=== PATIENT | female | born 1995 ===

== ENCOUNTER 2021-10-17 04:33 | Inpatient (IN) ==
[2021-10-17] MEDS ORDERED: MEPERIDINE 50 MG/1 ML VIAL IV PRN (05:12)
[2021-10-17] MEDS: LACTATED RINGERS 1,000 ML IV SCH ×2 (05:12→14:14)
[2021-10-17] MEDS ORDERED: ONDANSETRON 4 MG/2 ML VIAL IV PRN ×2 (05:12→19:16)
[2021-10-17] MEDS ORDERED: BUTORPHANOL 2 MG/ML VIAL IV PRN (05:12)
[2021-10-17 05:42] LABS: Basophils % 0.2 % (0.0-0.8); Eosinophils # 0.2 10*3/uL (0.0-0.87); Eosinophils % 2.2 % (0.00-10.9); Hematocrit 31.7 VOL% (35.7-47.0); Hemoglobin 10.2 GM/DL (12.0-16.0); Immature Granulocytes % 0.4 %; Immature Granulocytes Absolute 0.04 #; Lymphocytes # 2.2 10*3/uL (1.4-4.0); Lymphocytes % 21.3 % (21.3-54.2); Mean Corpuscular HGB Conc 32.2 GM/DL (32-36); Mean Corpuscular Volume 83.6 FL (87-102); Mean Platelet Volume 8.9 FL (9.6-12.0); Monocytes % 8.9 % (1.7-12.7); Platelet Count 475 T/CUMM (130-400); Red Blood Count 3.79 MC/CUMM (3.8-5.5); Red Cell Distribution Width 14.1 % (9.3-17.3); White Blood Count 10.1 T/CUMM (4-12)
[2021-10-17 05:48] LABS: Bilirubin,Urine Negative (Negative); Blood, Urine Negative (Negative); Glucose,Urine (UA) Negative (Negative); Ketones,Urine Negative (Negative); Mucus,Urine Occasional /LPF (Occasional); Nitrite,Urine Negative (Negative); Protein,Urine Negative; RBC,Urine 1 /HPF (0-4); Squamous Epithelial Cell,Urine Occasional /HPF (0-10); Urine Appearance CLEAR (Clear); Urine Color Yellow (Yellow); Urine Specific Gravity 1.016 (1.001-1.035); Urine Urobilinogen < 2.0 EU/DL (<2.0)
[2021-10-17] MEDS ORDERED: OXYTOCIN/LR 20 UNIT/1,000 ML BAG IV SCH (06:00)
[2021-10-17 06:29] LABS: Alanine Aminotransferase 19 U/L (13-56); Albumin 2.4 G/DL (3.4-5.0); Alkaline Phosphatase 159 U/L (45-117); Aspartate Amino Transferase 15 U/L (0-37); Bilirubin,Total < 0.39 MG/DL (0.20-1.00); Blood Urea Nitrogen 11 MG/DL (7-18); Calcium 8.2 MG/DL (8.5-10.1); Carbon Dioxide 20 MMOL/L (21-32); Estimated Glom Filtration Rate 151 ML/MIN; Glucose 93 MG/DL (74-106); Osmolality,Calculated 271.8 MOS/KG (273-304); Potassium 3.8 MMOL/L (3.5-5.1); Sodium 137 MMOL/L (136-145); Total Protein 7.6 G/DL (6.4-8.2)
[2021-10-17] MEDS ORDERED: CARBOPROST TROMETHAMINE 250 MCG/ML AMP IM ONE (15:17)
[2021-10-17] MEDS ORDERED: METHYLERGONOVINE 0.2 MG/1 ML AMP ONE (15:17)
[2021-10-17] MEDS ORDERED: miSOPROStoL 200 MCG TABLET ONE (15:17)
[2021-10-17] MEDS ORDERED: LIDOCAINE 1% 50 ML VIAL ONE (15:40)
[2021-10-17] MEDS ORDERED: ePHEDrine 50 MG/ML VIAL IV PRN (15:53)
[2021-10-17] MEDS ORDERED: diphenhydrAMINE 50 MG/1 ML VIAL IV PRN (15:53)
[2021-10-17] MEDS ORDERED: FAMOTIDINE 20 MG/2 ML VIAL IV ONE ×2 (15:53→15:59)
[2021-10-17] MEDS ORDERED: CITRIC ACID/SODIUM CITRATE 30 ML UDCUP PO ONE (15:53)
[2021-10-17] MEDS ORDERED: PROMETHAZINE 25 MG/1 ML VIAL IM PRN (15:53)
[2021-10-17] MEDS ORDERED: NALOXONE 0.4 MG/ML VIAL IV PRN (15:53)
[2021-10-17] MEDS ORDERED: CITRIC ACID/SODIUM CITRATE 30 ML UDCUP ONE (15:58)
[2021-10-17] MEDS ORDERED: fentaNYL 2 MCG/ROPIV 0.2% EPID 100 ML EPIDURAL ONE (15:59)
[2021-10-17] MEDS ORDERED: fentaNYL 2 MCG/ROPIV 0.2% EPID 100 ML EPIDURAL SCH (16:00)
[2021-10-17] MEDS ORDERED: ceFAZolin 2,000 MG/50 ML DUPLEX IV ONE (18:03)
[2021-10-17] MEDS ORDERED: LIDOCAINE MPF 2% /EPI 20 ML VIAL ONE (18:13)
[2021-10-17] MEDS ORDERED: KETOROLAC 30 MG/1 ML VIAL ONE (18:28)
[2021-10-17] MEDS ORDERED: ACETAMINOPHEN INJ 1,000 MG/100 ML VIAL IV ONE (18:28)
[2021-10-17] MEDS ORDERED: OXYTOCIN 10 UNIT/ML VIAL ONE (18:31)
[2021-10-17] MEDS ORDERED: OXYTOCIN 10 UNIT/ML VIAL IM ONE (18:45)
[2021-10-17] MEDS ORDERED: MIDAZOLAM 2 MG/2 ML VIAL ONE (18:55)
[2021-10-17 19:00] LABS: Cord Venous Blood HCO3 22.8 MMOL/L; Cord Venous Blood PCO2 42.7 MMHG; Cord Venous Blood PO2 28.8
[2021-10-17] MEDS ORDERED: PHENYLEPHRINE 1 MG/10 ML SYRINGE IV ONE (19:01)
[2021-10-17 19:05] LABS: Bilirubin,Urine Negative (Negative); Blood, Urine Negative (Negative); Glucose,Urine (UA) Negative (Negative); Ketones,Urine 20 mg/dL (Negative); Mucus,Urine Occasional /LPF (Occasional); Nitrite,Urine Negative (Negative); Protein,Urine Negative; RBC,Urine <1 /HPF (0-4); Squamous Epithelial Cell,Urine Occasional /HPF (0-10); Urine Appearance CLEAR (Clear); Urine Color Yellow (Yellow); Urine Specific Gravity 1.016 (1.001-1.035); Urine Urobilinogen < 2.0 EU/DL (<2.0)
[2021-10-17] MEDS ORDERED: RHO(D) IMMUNE GLOBULIN 300 MCG SYRINGE IM ONE (19:16)
[2021-10-17] MEDS ORDERED: MAGNESIUM HYDROXIDE SUSP 30 ML UDCUP PO PRN (19:16)
[2021-10-17] MEDS ORDERED: OXYTOCIN/LR 20 UNIT/1,000 ML BAG IV ONE (19:16)
[2021-10-17] MEDS ORDERED: ACETAMINOPHEN 325 MG TABLET PO PRN (19:16)
[2021-10-17] MEDS ORDERED: SIMETHICONE CHEW 80 MG TABLET PO PRN (19:16)
[2021-10-17] MEDS ORDERED: LACTATED RINGERS 1,000 ML IV SCH (19:30)
[2021-10-17] MEDS: OXYTOCIN/LR 30 UNIT/1,000 ML BAG IV PRN ×2 (19:52→22:17)
[2021-10-17] MEDS: DOCUSATE SODIUM 100 MG CAPSULE PO SCH (22:17)
[2021-10-18] MEDS: KETOROLAC 30 MG/1 ML VIAL IV SCH ×3 (02:51→18:41)
[2021-10-18] MEDS ORDERED: HYDROmorphone 2 MG/1 ML VIAL IV ONE (03:43)
[2021-10-18] MEDS ORDERED: BENZOCAINE/MENTHOL LOZENGE 18/BOX PO PRN (06:51)
[2021-10-18 07:44] LABS: Basophils % 0.4 % (0.0-0.8); Eosinophils % 0.3 % (0.00-10.9); Hematocrit 25.5 VOL% (35.7-47.0); Immature Granulocytes % 0.4 %; Immature Granulocytes Absolute 0.04 #; Lymphocytes # 1.6 10*3/uL (1.4-4.0); Lymphocytes % 15.6 % (21.3-54.2); Mean Corpuscular HGB Conc 31.4 GM/DL (32-36); Mean Platelet Volume 9.2 FL (9.6-12.0); Neutrophils % 73.3 % (38.7-73.9); Platelet Count 396 T/CUMM (130-400); Red Cell Distribution Width 14.3 % (9.3-17.3); White Blood Count 10.1 T/CUMM (4-12)
[2021-10-18] MEDS ORDERED: INFLUENZA VIRUS VACCINE 0.5 ML SYRINGE IM ONE (09:00)
[2021-10-18] MEDS: METOCLOPRAMIDE 10 MG TABLET PO SCH ×2 (09:00→16:00)
[2021-10-18] MEDS: DOCUSATE SODIUM 100 MG CAPSULE PO SCH (09:15)
[2021-10-18] MEDS: MULTIVITAMIN (PRENATAL) TABLET PO SCH (09:16)
[2021-10-18] MEDS: IBUPROFEN 800 MG TABLET PO PRN ×2 (13:00→16:40)
[2021-10-18] MEDS: ACETAMINOPHEN 500 MG TABLET PO SCH ×2 (16:38→18:25)
[2021-10-18] MEDS ORDERED: POLYETHYLENE GLYCOL POWDER 17 GM PACK PO SCH (21:00)
[2021-10-19] MEDS: DOCUSATE SODIUM 100 MG CAPSULE PO SCH ×2 (01:44→09:11)
[2021-10-19] MEDS: MULTIVITAMIN (PRENATAL) TABLET PO SCH (09:11)
[2021-10-19] MEDS ORDERED: DIPH/TET/ACEL PERT BOOSTER VACCINE 0.5 ML VIAL IM ONE (12:37)
[2021-10-19 19:05] VITALS: BP 105/61
== END 2021-10-19 12:50 | disposition home or self-care (01) | DRG 540 ==
LOC: N.LD 04:33 → N.OB 23:50
PROVIDERS: ADMIT Obstetrics & Gynecology; ATTEND Obstetrics & Gynecology
PROC: LDCSECT (ICD-10-PCS; 2021-10-17 18:00)

== ENCOUNTER 2022-11-29 22:45 | Inpatient (IN) ==
[2022-11-29] MEDS ORDERED: METHYLERGONOVINE 0.2 MG/1 ML AMP IM PRN (23:00)
[2022-11-29] MEDS ORDERED: miSOPROStoL 200 MCG TABLET RECTAL PRN (23:00)
[2022-11-29] MEDS ORDERED: ONDANSETRON 4 MG/2 ML VIAL IV PRN (23:00)
[2022-11-29] MEDS ORDERED: LACTATED RINGERS 1,000 ML IV SCH (23:00)
[2022-11-29] MEDS ORDERED: CARBOPROST TROMETHAMINE 250 MCG/ML AMP IM PRN (23:00)
[2022-11-29] MEDS ORDERED: TRANEXAMIC ACID 1,000 MG in SODIUM CHLORIDE 0.9% 100 ML IV PRN (23:00)
[2022-11-29] MEDS ORDERED: OXYTOCIN/LR 20 UNIT/1,000 ML BAG IV ONE (23:00)
[2022-11-29] MEDS ORDERED: ePHEDrine 50 MG/ML VIAL IV PRN (23:02)
[2022-11-29] MEDS ORDERED: NALOXONE 0.4 MG/ML VIAL IV PRN (23:02)
[2022-11-29] MEDS ORDERED: CITRIC ACID/SODIUM CITRATE 30 ML UDCUP PO ONE (23:02)
[2022-11-29] MEDS ORDERED: FAMOTIDINE 20 MG/2 ML VIAL IV ONE (23:02)
[2022-11-29] MEDS ORDERED: LACTATED RINGERS 1,000 ML IV PRN (23:02)
[2022-11-29] MEDS ORDERED: OXYTOCIN 10 UNIT/ML VIAL IM ONE (23:16)
[2022-11-29] MEDS ORDERED: OXYTOCIN/LR 30 UNIT/1,000 ML BAG IV ONE (23:17)
[2022-11-29] MEDS ORDERED: miSOPROStoL 200 MCG TABLET ONE (23:18)
[2022-11-29] MEDS ORDERED: TRANEXAMIC ACID 1,000 MG/10 ML VIAL ONE (23:18)
[2022-11-29] MEDS ORDERED: SODIUM CHLORIDE 0.9% 0 ML IV ONE (23:19)
[2022-11-29] MEDS ORDERED: OXYTOCIN/LR 0 UNIT/0 ML BAG IV ONE (23:19)
[2022-11-29] MEDS ORDERED: CARBOPROST TROMETHAMINE 250 MCG/ML AMP IM ONE (23:19)
[2022-11-29] MEDS ORDERED: METHYLERGONOVINE 0.2 MG/1 ML AMP ONE (23:19)
[2022-11-29] MEDS ORDERED: fentaNYL 2 MCG/ROPIV 0.2% EPID 100 ML EPIDURAL SCH (23:30)
[2022-11-29 23:31] LABS: Basophils % 0.1 % (0.0-0.8); Eosinophils # 0.1 10*3/uL (0.0-0.87); Eosinophils % 0.4 % (0.00-10.9); Hematocrit 28.7 VOL% (35.7-47.0); Immature Granulocytes % 0.4 %; Immature Granulocytes Absolute 0.05 #; Lymphocytes # 2.5 10*3/uL (1.4-4.0); Lymphocytes % 18.8 % (21.3-54.2); Mean Corpuscular HGB Conc 31.4 GM/DL (32-36); Mean Corpuscular Volume 76.9 FL (87-102); Mean Platelet Volume 8.8 FL (9.6-12.0); Monocytes # 0.9 10*3/uL (0.11-0.8); Monocytes % 6.7 % (1.7-12.7); Neutrophils % 73.6 % (38.7-73.9); Platelet Count 480 T/CUMM (130-400); Red Blood Count 3.73 MC/CUMM (3.8-5.5); Red Cell Distribution Width 16.1 % (9.3-17.3); White Blood Count 13.49 T/CUMM (4-12)
[2022-11-29 23:49] LABS: Alanine Aminotransferase 16 U/L (13-56); Albumin 2.7 G/DL (3.4-5.0); Alkaline Phosphatase 143 U/L (45-117); Aspartate Amino Transferase 14 U/L (0-37); Bilirubin,Total < 0.39 MG/DL (0.20-1.00); Blood Urea Nitrogen 17 MG/DL (7-18); Calcium 8.7 MG/DL (8.5-10.1); Carbon Dioxide 21 MMOL/L (21-32); Chloride 109 MMOL/L (98-107); Glucose 92 MG/DL (74-106); Osmolality,Calculated 276.7 MOS/KG (273-304); Sodium 138 MMOL/L (136-145); Total Protein 7.8 G/DL (6.4-8.2)
[2022-11-29] MEDS ORDERED: PHENYLEPHRINE 1 MG/10 ML SYRINGE IV ONE (23:50)
[2022-11-29] MEDS ORDERED: KETOROLAC 30 MG/1 ML VIAL ONE (23:50)
[2022-11-29] MEDS ORDERED: ONDANSETRON 4 MG/2 ML VIAL ONE (23:50)
[2022-11-29] MEDS ORDERED: buprenorphine HCL 0.3 MG/ML VIAL ONE (23:51)
[2022-11-30] MEDS ORDERED: LACTATED RINGERS 1,000 ML IV ONE (00:31)
[2022-11-30 00:49] LABS: Cord Venous Blood HCO3 21.6 MMOL/L; Cord Venous Blood PCO2 44.7 MMHG; Cord Venous Blood PO2 30.8
[2022-11-30 00:51] LABS: Mucus,Urine Occasional /LPF (Occasional); RBC,Urine 1 /HPF (0-4); Squamous Epithelial Cell,Urine Occasional /HPF (0-10)
[2022-11-30 00:53] LABS: Bilirubin,Urine Negative (Negative); Blood, Urine Negative (Negative); Glucose,Urine (UA) Negative (Negative); Ketones,Urine Negative (Negative); Nitrite,Urine Negative (Negative); Protein,Urine Negative (Negative); Urine Appearance Clear (Clear); Urine Color Yellow (Yellow); Urine Specific Gravity 1.025 (1.001-1.035); Urine Urobilinogen 0.2 eU/dL (<2.0); Urine pH 6.5 (4.5-8.0)
[2022-11-30] MEDS ORDERED: IBUPROFEN 800 MG TABLET PO PRN (01:06)
[2022-11-30] MEDS ORDERED: RHO(D) IMMUNE GLOBULIN 300 MCG SYRINGE IM ONE (01:06)
[2022-11-30] MEDS ORDERED: OXYTOCIN/LR 20 UNIT/1,000 ML BAG IV ONE (01:06)
[2022-11-30] MEDS ORDERED: ACETAMINOPHEN 325 MG TABLET PO PRN (01:06)
[2022-11-30] MEDS ORDERED: LACTATED RINGERS 1,000 ML IV SCH (01:30)
[2022-11-30] MEDS ORDERED: SODIUM CHLORIDE 0.9% 1,000 ML IV PRN ×2 (01:34→01:55)
[2022-11-30] MEDS: ACETAMINOPHEN 500 MG TABLET PO SCH ×4 (04:14→23:55)
[2022-11-30 04:56] LABS: Basophils % 0.2 % (0.0-0.8); Hemoglobin 8.8 GM/DL (12.0-16.0); Immature Granulocytes % 0.5 %; Immature Granulocytes Absolute 0.08 #; Lymphocytes # 1.6 10*3/uL (1.4-4.0); Lymphocytes % 10.5 % (21.3-54.2); Mean Corpuscular HGB Conc 30.3 GM/DL (32-36); Mean Corpuscular Volume 79.5 FL (87-102); Mean Platelet Volume 8.9 FL (9.6-12.0); Monocytes % 6.7 % (1.7-12.7); Neutrophils % 82.1 % (38.7-73.9); Platelet Count 401 T/CUMM (130-400); Red Blood Count 3.65 MC/CUMM (3.8-5.5); Red Cell Distribution Width 16.5 % (9.3-17.3); White Blood Count 15.11 T/CUMM (4-12)
[2022-11-30] MEDS: ONDANSETRON 4 MG/2 ML VIAL IV PRN ×2 (05:39→11:47)
[2022-11-30] MEDS: KETOROLAC 30 MG/1 ML VIAL IV SCH ×3 (06:16→17:52)
[2022-11-30 08:17] LABS: Basophils % 0.1 % (0.0-0.8); Hematocrit 27.8 VOL% (35.7-47.0); Hemoglobin 8.5 GM/DL (12.0-16.0); Immature Granulocytes % 0.6 %; Lymphocytes # 1.4 10*3/uL (1.4-4.0); Lymphocytes % 8.3 % (21.3-54.2); Mean Corpuscular HGB Conc 30.6 GM/DL (32-36); Mean Corpuscular Volume 79.2 FL (87-102); Mean Platelet Volume 8.8 FL (9.6-12.0); Monocytes % 6.4 % (1.7-12.7); Neutrophils % 84.6 % (38.7-73.9); Platelet Count 384 T/CUMM (130-400); Red Blood Count 3.51 MC/CUMM (3.8-5.5); Red Cell Distribution Width 16.5 % (9.3-17.3); White Blood Count 16.18 T/CUMM (4-12)
[2022-11-30] MEDS: MAGNESIUM HYDROXIDE SUSP 30 ML UDCUP PO PRN (09:56)
[2022-11-30] MEDS: MULTIVITAMIN (PRENATAL) TABLET PO SCH (09:57)
[2022-11-30] MEDS: DOCUSATE SODIUM 100 MG CAPSULE PO SCH ×2 (09:57→20:20)
[2022-11-30] MEDS: SIMETHICONE CHEW 80 MG TABLET PO PRN (09:57)
[2022-11-30] MEDS: FERROUS SULFATE 325 MG TABLET PO SCH (20:20)
[2022-12-01 05:41] LABS: Basophils % 0.2 % (0.0-0.8); Eosinophils # 0.1 10*3/uL (0.0-0.87); Eosinophils % 1.2 % (0.00-10.9); Hematocrit 23.8 VOL% (35.7-47.0); Hemoglobin 7.4 GM/DL (12.0-16.0); Immature Granulocytes % 0.7 %; Immature Granulocytes Absolute 0.09 #; Lymphocytes # 2.8 10*3/uL (1.4-4.0); Mean Corpuscular HGB Conc 31.1 GM/DL (32-36); Mean Corpuscular Volume 79.6 FL (87-102); Mean Platelet Volume 8.8 FL (9.6-12.0); Monocytes % 7.9 % (1.7-12.7); Platelet Count 385 T/CUMM (130-400); Red Blood Count 2.99 MC/CUMM (3.8-5.5); Red Cell Distribution Width 16.5 % (9.3-17.3)
[2022-12-01 06:30] LABS: Hepatitis B Surface Ag Quant < 0.10 Index; Hepatitis B Surface Ag Result Non-Reactive (NonReactive)
[2022-12-01] MEDS: MULTIVITAMIN (PRENATAL) TABLET PO SCH (08:24)
[2022-12-01] MEDS: DOCUSATE SODIUM 100 MG CAPSULE PO SCH ×2 (08:24→21:43)
[2022-12-01] MEDS: SIMETHICONE CHEW 80 MG TABLET PO PRN ×2 (08:24→21:42)
[2022-12-01] MEDS: FERROUS SULFATE 325 MG TABLET PO SCH ×2 (08:24→21:43)
[2022-12-01] MEDS: MAGNESIUM HYDROXIDE SUSP 30 ML UDCUP PO PRN ×2 (08:24→21:42)
[2022-12-01] MEDS ORDERED: SODIUM CHLORIDE 0.9% 1,000 ML IV PRN (08:40)
[2022-12-02 04:58] LABS: Hemoglobin 8.1 GM/DL (12.0-16.0)
[2022-12-02 05:37] LABS: Rubella Antibody IgG Result Reactive (NonReactive)
[2022-12-02] MEDS: DOCUSATE SODIUM 100 MG CAPSULE PO SCH (08:45)
[2022-12-02] MEDS: FERROUS SULFATE 325 MG TABLET PO SCH (08:45)
[2022-12-02] MEDS: MULTIVITAMIN (PRENATAL) TABLET PO SCH (08:45)
[2022-12-02 11:32] VITALS: BP 110/62
== END 2022-12-02 11:35 | disposition home or self-care (01) | DRG 788 ==
LOC: N.LDOUT 22:45 → N.LD 22:47 → N.OB 11-30 05:25
PROVIDERS: ADMIT Obstetrics & Gynecology; ATTEND Obstetrics & Gynecology
PROC: LDCSECT (ICD-10-PCS; 2022-11-29 23:05)